=== PATIENT | female | born 1950 | race Caucasian/White ===

== ENCOUNTER → 2016-11-28 | Outpatient (CLI) | payer OTHER, SELFPAY ==
--- NOTE | 2016-11-28 15:24 | MAM ---
History: Well woman exam. Date of exam: 11/28/2016 Services provided: Bilateral full field digital screening mammography. CAD, the images were reviewed with R2 computer aided detection. FINDINGS: Glandular tissue is scattered glandular contour. No prior study is currently available for comparison. No dominant mass, architectural distortion or clustered microcalcification. IMPRESSION: Benign exam Recommendation: Routine annual mammography BIRAD CATEGORY: 2 BENIGN Electronically signed by: Oralia Walker MD 11/28/2016 3:23 PM CDT Workstation: [id number]
== END | disposition home or self-care (01) ==
LOC: MAMMO 13:45
PROVIDERS: ATTEND Family Medicine
DX: Z12.31 Encounter for screening mammogram for malignant neoplasm of breast (principal)

== ENCOUNTER → 2017-04-18 | Outpatient (CLI) | payer OTHER | LOC: YCFC.O 08:01 | PROVIDERS: ATTEND Nurse Practitioner Family | DX: I10 Essential (primary) hypertension (principal); E78.2 Mixed hyperlipidemia; R73.09 Other abnormal glucose ==

== ENCOUNTER 2017-07-21 12:14 | Inpatient (IN) | payer SELFPAY ==
[2017-07-21] MEDS ORDERED: IBUPROFEN 200 MG TAB PO ONE (12:37)
[2017-07-21] MEDS ORDERED: IPRATROPIUM/ALBUTEROL 3 ML VIAL NEB ONE (12:37)
--- NOTE | 2017-07-21 13:01 | RAD ---
EXAM: Frontal and lateral chest X-ray's obtained. CLINICAL INDICATION: cough, fever 2 weeks COMPARISON: Chest x-ray image from 11/11/2012. Report unavailable at the time of dictation. FINDINGS: There is patchy increased density at the right lung base and superior to the minor fissure of the right upper lobe. Additional streaky densities noted in the left lung base. There is blunting of the right costophrenic angle. No sizable left pleural effusion. No pneumothorax. The heart size appears within normal limits and there is no pulmonary vascular congestion. There are calcifications of the aortic arch. Visualized osseous structures appear moderately demineralized. IMPRESSION: Findings concerning for multifocal pneumonia involving the right upper and right lower lobes with additional atelectasis or infiltrate in the left lung base and small right pleural effusion. Electronically signed by: Grey Arteaga MD 07/21/2017 12:[address] [facility] Workstation: [id number]
[2017-07-21] MEDS ORDERED: ALUMINUM & MAGNESIUM HYDROXIDE 30 ML UD PO ONE ×2 (13:12→16:03)
[2017-07-21] MEDS ORDERED: OSELTAMIVIR 75 MG CAP PO ONE (13:27)
[2017-07-21] MEDS ORDERED: POTASSIUM CHLORIDE ELIXIR 20 MEQ/15 ML UD PO ONE (14:35)
[2017-07-21] MEDS ORDERED: ACETYLCYSTEIN 20 % 6,000 MG/30 ML VIAL PO ONE (14:35)
[2017-07-21] MEDS ORDERED: SODIUM CHLORIDE 0.9% 1000ML 1,000 ML IVS ONE (14:35)
[2017-07-21] MEDS ORDERED: AZITHROMYCIN IV 500 MG in SODIUM CHLORIDE 0.9% 250ML 250 ML IVPB ONE (16:10)
[2017-07-21] MEDS ORDERED: cefTRIAXone SODIUM 1 GM in SODIUM CHL 0.9% 50ML MIN-BAG+ 50 ML IVPB ONE (16:10)
--- NOTE | 2017-07-21 16:14 | CT ---
EXAM DESCRIPTION: CTA Chest 07/21/2017 4:09 PM SAFETY DEPOSIT CLERK CLINICAL HISTORY: 66 years, Female, pe protocol, hypoxia COMPARISON: None. TECHNIQUE: Following the timed administration of intravenous contrast, volumetric CT acquisition was performed through the chest. Images in the axial, coronal, and sagittal plane were presented for interpretation. Maximum intensity projections were also presented for interpretation. This exam was performed according to our departmental dose-optimization program, which includes automated exposure control, adjustment of the mA and/or kV according to patient size and/or use of iterative reconstruction technique. FINDINGS: There is no evidence of pulmonary embolism on this diagnostic quality study. There are nodular foci of consolidation throughout the lungs bilaterally which is most pronounced in the right lower lobe. There is confluent consolidation within the right lower lobe best seen on axial image 65 measuring up to 9.2 x 8.7 cm. The heart is normal in size and morphology. The thoracic aorta and its primary branches are normal in course and caliber. The main pulmonary artery is normal in size. The visualized proximal tracheobronchial tree is within normal limits. There is a right hilar lymph node on axial image 56 measuring 8 mm in diameter. There is no additional right hilar lymph node on axial image 44 measuring 1.5 cm. There is a left hilar lymph node on axial image 48 measuring 9 mm in diameter. The soft tissue structures of the chest wall are normal. The visualized osseous structures are age appropriate. There is diffuse fatty infiltration of the liver. The rest of the upper abdominal structures are grossly normal in appearance. IMPRESSION: 1. No evidence of pulmonary embolism. 2. Confluent right lower lobe consolidation with patchy areas of consolidation throughout the lungs bilaterally, likely representing multifocal infectious process though follow-up to radiographic resolution is recommended. The scattered mediastinal and hilar lymph nodes are likely reactive in nature. 3. Fatty liver. Electronically signed by: Tameka Elkins MD 07/21/2017 4:13 PM SAFETY DEPOSIT CLERK
--- NOTE | 2017-07-21 16:29 | ED.PDOC ---
History of Present Illness - General Chief Complaint: General Stated Complaint: Cough, congestion Time Seen by Provider: 07/21/17 12:32 Source: patient Exam Limitations: no limitations - History of Present Illness Initial Comments: the patient's is 66-year-old female presenting to the emergency room secondary to cough and shortness of breath. She's had a significant cough for the last couple of weeks and was actually seen in outpatient clinic yesterday or the day before yesterday and was apparently written for an antibiotic that she did not get picked up. She does have some chronic lung disease as she does have nebulizer treatments at home but she has not really been using these. She does report some fever. She reports to coughing hard enough that it has made her throw up. She is not having any chest pain. She does have shortness of breath and fatigue. She does have a mild increased work of breathing. She is febrile here today. She did test negative for the flu at her previous appointment a couple of days ago. Timing/Duration: unsure Severity: moderate Improving Factors: nothing Worsening Factors: nothing Associated Symptoms: cough, diaphoresis, fever/chills, malaise, shortness of breath, weakness Allergies/Adverse Reactions: Allergies NO KNOWN ALLERGY Allergy (Verified 07/21/17 12:21) Home Medications: Ambulatory Orders Acetaminophen Arthritis [Tylenol Arthritis] 650 mg PO TID PRN 07/21/17 Lisinopril & Hydrochlorothiazi [Lisinopril/Hctz 20-25 mg] 1 tab PO BEDTIME 07/21 Lovastatin 20 mg PO DAILY 07/21/17 amLODIPine BESYLATE [Norvasc] 10 mg PO DAILY 07/21/17 Review of Systems - Review of Systems Constitutional: States: chills, fever, malaise EENTM: States: nose congestion Respiratory: States: cough, short of breath Cardiology: States: no symptoms reported Gastrointestinal/Abdominal: States: vomiting - after coughing Genitourinary: States: no symptoms reported Musculoskeletal: States: no symptoms reported Skin: States: no symptoms reported Neurological: States: no symptoms reported Endocrine: States: no symptoms reported All other Systems: No Change from Baseline Past Medical History (General) - Patient Medical History Hx Seizures: No Hx Stroke: No Hx Dementia: No Hx Asthma: No Hx of COPD: No Hx Cardiac Disorders: Yes - high cholesterol Hx Congestive Heart Failure: No Hx Pacemaker: No Hx Hypertension: Yes Hx Thyroid Disease: No Hx Diabetes: No Hx Gastroesophageal Reflux: No Hx Renal Disease: No Hx Cancer: No Hx of HIV: No Hx Hepatitis C: No Hx MRSA: No Surgical History: tonsillectomy, Hysterectomy, other - Vaccination History Hx Tetanus, Diphtheria Vaccination: Yes - unsure when Hx Influenza Vaccination: No Hx Pneumococcal Vaccination: No - Social History Hx Tobacco Use: No Hx Alcohol Use: No Hx Substance Use: No Hx Substance Use Treatment: No Hx Depression: No Family Medical History - Family History Father Living Status: Hx Cardiac Disease: Yes Mother Family History: Unknown Living Status: Hx Family Diabetes: Yes Physical Exam - Physical Exam General Appearance: Alert, Ill Appearing Eye Exam: bilateral normal Ears, Nose, Throat: hearing grossly normal, nasal congestion, pharyngeal erythema Neck: full range of motion, supple Respiratory: other - the patient has scattered rales diffusely. She has occasional scattered wheezes. She has a mild increased work of breathing. She has mild increased accessory muscle use. 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 She appears to have a longer standing bacterial pneumonia with scattered infiltrates. She is being placed on Rocephin and azithromycin for this. Additionally she appears to have developed influenza on top of this within the last couple of days likely. The patient has received a dose of Tamiflu. She is hypoxic and does correct just adequately at this time with supplemental oxygen. The breathing treatment did not seem to help much. She did receive an ABG to confirm correlation with pulse oximetry. CT angiogram of the chest was performed primarily to rule out a pulmonary embolus as the patient failed to correct much more on her pulse oximetry with higher oxygen flow rates. No evidence of pulmonary and was found. Blood cultures have been performed. A sputum culture is pending. The patient first has received a dose of IV fluids and a dose of Mucomyst for renal prophylaxis due to CT angiogram. Admit for further care. Supplemental oxygen is required. no steroids have been given at this time. - Results/Orders Results/Orders: 07/21/17 13:50 BLOOD CULTURE Stat Laboratory Results - last 24 hr 07/21/17 07/21/17 07/21/17 13:21 13:50 13:50 WBC 14.5 H RBC 4.54 Hgb 12.6 Hct 37.1 MCV 81.7 MCH 27.7 MCHC 33.9 RDW 13.5 Plt Count 172 MPV 8.4 Absolute Neuts (auto) 12.90 H Absolute Lymphs (auto) 0.80 L Absolute Monos (auto) 0.80 Absolute Eos (auto) 0.00 Absolute Basos (auto) 0.00 Neutrophils % 88.8 H Lymphocytes % 5.2 L Monocytes % 5.7 Eosinophils % 0.0 L Basophils % 0.3 PT INR PTT (SP) D-Dimer, Quantitative pCO2 41 pO2 52 L HCO3 29.7 ABG pH 7.470 H ABG O2 Saturation 92.2 L ABG Base Excess 6.0 ABG Deoxyhemoglobin 7.6 H Oxyhemoglobin % 89.8 L Carboxyhemoglobin % 1.0 Methemoglobin % Sat 1.6 H Calc Total Hemoglobin 12.4 Sodium 132 L Potassium 2.9 L Chloride 88 L Carbon Dioxide 29 Anion Gap 17.9 BUN 43 H Creatinine 1.21 BUN/Creatinine Ratio 35.5 H Random Glucose 215 H Serum Osmolality 281.8 Calcium 9.7 Total Bilirubin 1.0 AST 26 ALT 24 Alkaline Phosphatase 47 Creatine Kinase 233 H* CK-MB (CK-2) 2.8 CK-MB (CK-2) % Not Reportable Troponin I < 0.02 B-Natriuretic Peptide 12.8 Serum Total Protein 8.3 H Albumin 3.7 Globulin 4.6 H Albumin/Globulin Ratio 0.8 L 07/21/17 13:50 WBC RBC Hgb Hct MCV MCH MCHC RDW Plt Count MPV Absolute Neuts (auto) Absolute Lymphs (auto) Absolute Monos (auto) Absolute Eos (auto) Absolute Basos (auto) Neutrophils % Lymphocytes % Monocytes % Eosinophils % Basophils % PT 14.0 H INR 1.240 PTT (SP) 26.4 D-Dimer, Quantitative 940 H* pCO2 pO2 HCO3 ABG pH ABG O2 Saturation ABG Base Excess ABG Deoxyhemoglobin Oxyhemoglobin % Carboxyhemoglobin % Methemoglobin % Sat Calc Total Hemoglobin Sodium Potassium Chloride Carbon Dioxide Anion Gap BUN Creatinine BUN/Creatinine Ratio Random Glucose Serum Osmolality Calcium Total Bilirubin AST ALT Alkaline Phosphatase Creatine Kinase CK-MB (CK-2) CK-MB (CK-2) % Troponin I B-Natriuretic Peptide Serum Total Protein Albumin Globulin Albumin/Globulin Ratio the patient has tested positive for the flu as well hest x-ray shows patchy infiltrates with a significant right lower lobe infiltrate. CT angiogram of the chest shows no evidence of pulmonary embolus but does confirm scattered pulmonary infiltrates and a larger right lower lobe infiltrate. Departure - Departure Clinical Impression: Influenza Pneumonia Qualifiers: Pneumonia type: due to unspecified organism Laterality: bilateral Lung location : unspecified part of lung Qualified Code(s): J18.9 - Pneumonia, unspecified organism Disposition: Admit Patient Home Medications: Ambulatory Orders Acetaminophen Arthritis [Tylenol Arthritis] 650 mg PO TID PRN 07/21/17 Lisinopril & Hydrochlorothiazi [Lisinopril/Hctz 20-25 mg] 1 tab PO BEDTIME 07/21 Lovastatin 20 mg PO DAILY 07/21/17 amLODIPine BESYLATE [Norvasc] 10 mg PO DAILY 07/21/17 Decision To Admit - Decistion To Admit Decision to Admit Reason: Medical Nature Decision to Admit Date: 07/21/17 Decision to Admit Time: 16:35
[2017-07-21] MEDS ORDERED: SODIUM CHL 0.9% 50ML MIN-BAG+ 50 ML IVPB ONE (17:13)
[2017-07-21] MEDS ORDERED: cefTRIAXone SODIUM 1 GM VIAL ONE (17:13)
[2017-07-21] MEDS ORDERED: SODIUM CHLORIDE 0.9% 250ML 250 ML ONE (17:53)
[2017-07-21] MEDS ORDERED: AZITHROMYCIN IV 500 MG VIAL IVPB ONE (17:53)
--- NOTE | 2017-07-21 18:01 | HP ---
SUPERVISING PHYSICIAN: aCleb Vidal M.D. CHIEF COMPLAINT: Cough and congestion. HISTORY OF PRESENT ILLNESS: Ms. Sequeira is a 66 year-old female patient that presented to the Emergency Room today due to a worsening cough and shortness of breath. She notes that she has had the cough well over a week and was actually seen in the clinic yesterday by Latonia Zamora and was written a prescription, however, she did not get the medication filled and is unsure as to what the actual medication was. She does have a significant history of some chronic lung disease which she uses nebulizer treatment at home but notes that she has not really been using them. She notes that she has had a fever at home and that her cough is bad enough that it has actually made her throw up once. She denied any chest pains but noted that she does have increasing shortness of breath and fatigue, and some dyspnea with exertional effort. She did have a flu swab several days previously that was negative, however today her laboratory testing showed on the Influenza test that she was positive for Influenza A. She also showed to have a significant leukocytosis of 14,500 with a left shift. Blood gas analysis showed that she had significant hypoxemia with an initial pH of 7.47 and PCO2 of 41, PO2 of 52 and bicarb 29 with saturations on 2 liters nasal cannula at 92% with a base excess of 6. Chemistries were significant for hyponatremia with sodium 132 and hypokalemia 2.9. BUN was elevated, creatinine was within normal limits at 1.21. Initial lactic acid was elevated at 2.5. All liver functions showed to be within normal limits. CPK was elevated at 233 with troponin less than 0.02. Urinalysis showed on the dipstick 100 the protein with trace leukocyte esterase. Microscopic revealed a significant pyuria with WBCs of 10 to 20 with bacteria 1+. Blood cultures were completed. She was started on Tamiflu in the Emergency Department as well as initiated on antibiotic therapy with Rocephin and azithromycin. Her radiographic studies did indicate that she had a significant multifocal pneumonia involving the right upper and lower lobes with some infiltrates noted in the left lung base. Coagulation studies showed that she had an elevated D-dimer and given that she had significant hypoxemia despite oxygen therapy, a CTA of the chest was completed to further rule out a possible pulmonary embolism and per radiology interpretation there was no evidence of pulmonary embolism and of mention was confluent right lower lobe consolidation with patchy areas of consolidation throughout the lungs bilaterally likely representing multifocal infectious process. Given her symptomology, positive Influenza for A, multifocal pneumonia, leukocytosis, elevated lactic acid all concerning for community acquired pneumonia with developing sepsis, the patient is now going to be initiated with sepsis protocol. She was admitted in stable condition. PAST MEDICAL HISTORY: 1. Hypertension. 2. Hypercholesterolemia. PAST SURGICAL HISTORY: 1. sections times 2. 2. Total hysterectomy. 3. Kidney stone removal. 4. Tonsillectomy and adenoidectomy. HOME MEDICATIONS: 1. Lisinopril/Hydrochlorothiazide 20-25 one tablet at bedtime. 2. Tylenol Arthritis 650 mg t.i.d. as needed. 3. Amlodipine 10 mg daily. 4. Lovastatin 20 mg daily. ALLERGIES: NO KNOWN DRUG ALLERGIES. FAMILY HISTORY: Significant for diabetes mellitus and hypertension. 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 She is . Lives in [place]. She has never smoked, does not drink or use illicit drugs. REVIEW OF SYSTEMS: CONSTITUTIONAL: Positive for chills, fever and general malaise. HEENT: Notable for nasal congestion, nasal drainage. No sore throat. RESPIRATORY: Significant for worsening cough and shortness of breath. CARDIOVASCULAR: Denies any chest pains, syncopal episodes or palpitations. GASTROINTESTINAL: Noted some emesis with coughing but no nausea or vomiting or diarrhea or other bowel habit changes. GENITOURINARY: Notes that she has had some polyuria but denies any dysuria or other urinary symptoms. NEUROLOGIC: No vision changes or other neurological changes, headaches, vision changes. PHYSICAL EXAMINATION: VITAL SIGNS: Initial temperature was 100.5, pulse initially was 128 with blood pressure 116/58, respirations 24, satting low 90s on room air at rest, but showing significant hypoxemia on ABGs. Admission weight was 74.1 kg. GENERAL: The patient appears to be somewhat dehydrated, well nourished with apparent acute distress on admission to the Medical/Surgical floor but is ill appearing. HEENT: Tympanic membranes are clear bilaterally. Oropharynx was pink with mildly dry mucosal membranes. There were no lesions. NECK: Supple, non-tender with full range of motion. CHEST: Notable for rales diffused noted bilaterally with no significant wheezing. CARDIOVASCULAR: Regular rate and rhythm without appreciable murmurs, gallops, or rubs, ABDOMEN: Obese but soft, non-tender with positive bowel sounds. EXTREMITIES: No clubbing, cyanosis or edema. NEUROLOGIC: Cranial nerves II-XII are grossly intact. Facial features are symmetrical. Extraocular movements are within normal limits. There is no notable nystagmus. She was alert and oriented times three. LABORATORY: Showed a leukocytosis of 14,500 with hemoglobin 12.6, hematocrit 37.1, platelet count 172,000. Differential showed a left shift. Coagulation studies showed elevated PT of 14.0 with a normal PTT of 26.4. D-dimer was elevated 940. Blood gas analysis showed pH of 7.47, PO2 of 52, PCO2 of 41, bicarb 29.7, base excess 6.0, satting 92% on nasal cannula at rest. Chemistries showed a low sodium at 132, potassium was low at 2.9, carbon dioxide was normal at 29 with BUN 43, creatinine 1.21. Initial lactic acid was 2.5. Blood sugar showed elevation at 215. Liver functions showed all to be within normal limits with creatinine showing to be elevated at 233 with BNP of 12.8, troponin less than 0.02. Again, lactic acid initially was 2.5. Urinalysis showed 100 protein, trace leukocyte esterase. Microscopic showed 1 RBC, 10 to 20 WBCs, 1 to 3 epithelials, 1 + amorphous sediment, 1+ bacteria with some trace mucous. MICROBIOLOGY: Urine culture is pending. Sputum culture is pending. Blood culture is pending. Influenza by PCR showed positive for Influenza A, negative for B. RADIOLOGY: Initially chest x-ray in the Emergency Department per radiology interpretation showed findings concerning for multifocal pneumonia involving the right upper and lower lobes with additional atelectasis/infiltrate in the left lung base and small right pleural effusion. This was followed-up with CTA of the chest to rule out pulmonary embolism given the elevated D-dimer and per radiology interpretation there was no evidence of pulmonary embolism. Again, confluent right lower lobe consolidation with patchy areas of consolidation throughout the lung bilaterally likely representing multifocal infectious process was noted. Please see that report for full details. EKG was pending. ASSESSMENT: 1. Multifocal pneumonia community acquired with a positive Influenza A infection concerning for developing early sepsis. 2. Sepsis with systemic inflammatory response with an elevated lactic acid, significant hypoxemia on blood gas, leukocytosis secondary to underlying pneumonia and Influenza A. 3. Hyperglycemia with no history of diabetes mellitus with a hemoglobin A1c pending. 4. Hypertension, controlled. 5. Urinary tract infection with initiation of antibiotic therapy with Rocephin with cultures pending. 6. Electrolyte imbalance with hyponatremia and hypokalemia requiring initiation of IV fluids for replacement. 7. Partially compensated metabolic acidosis likely secondary to developing sepsis with an elevated lactic acid with a normal CO2, bicarb and base excess on admission with initial anion gap showing to be normal at 29. PLAN: The patient is going to be admitted to the Medical/Surgical floor for initiation of sepsis protocol with bilateral multifocal pneumonia. Blood cultures were collected as well as lactic acid prior to initiation of antibiotic therapy with Rocephin and azithromycin. She was given a liter of fluid in the E. R. that will be continued on the floor with additional fluids and maintenance fluids to include normal saline with 20 of potassium at 250 an hour for a liter to be continued after that at 125 an hour. She will be started on Tamiflu and DVT prophylaxis as per protocol. She will have aggressive pulmonary hygiene with chest percussive therapy awaiting a sputum culture to further target antibiotic therapy, again with antibiotic therapy to include Rocephin and azithromycin. She will be given Promethazine with codeine for cough and treated with Tylenol for fevers as needed. Will resume her home medications once they have been updated and verified in the medical records. Will closely monitor her blood sugars with a repeat BMP and lactic acid in 6 hours post admission. Will await a hemoglobin A1c to further address the hyperglycemia with initiation of possible need for sliding insulin protocol. Will anticipate length of stay to be at least 2 to 3 days. Until then, continue to monitor and treat appropriately until discharge. #[id number] [facility]
[2017-07-21] MEDS ORDERED: ONDANSETRON INJ 4 MG/2 ML VIAL IV PRN (18:49)
[2017-07-21] MEDS ORDERED: ACETAMINOPHEN 325 MG TAB PO PRN (18:49)
[2017-07-21] MEDS ORDERED: ALBUTEROL SULFATE 2.5 MG/3 ML VIAL NEB PRN (18:49)
[2017-07-21] MEDS ORDERED: KCL 20 MEQ/NS 1,000 ML IVS PRN (18:56)
--- NOTE | 2017-07-21 19:02 | PCM.CORE ---
Physician DVT/VTE - Nurse DVT Assessment & Total Each Risk Factor Represents 3 Points: Medical PT with Hx of SD, CHF, Severe infection/sepsis Each Risk Factor Represents 2 Points: Age 60-74 Each Risk Factor is 1 Point: Obesity (BMI >25), Serious Lung disease (pnemonia < 1month, COPD, emphysema,etc) DVT Assessment Score: 7 - 5 or more Very High Risk Treatments: Early Ambulation *, Sequential Compression Device Pharmacological: Enoxaparin 40mg SQ Daily
[2017-07-21] MEDS ORDERED: ENOXAPARIN SODIUM 40 MG/0.4 ML SYG SUBCU SCH (19:30)
[2017-07-21] MEDS ORDERED: LISINOPRIL 10 MG TAB ONE (19:40)
[2017-07-21] MEDS ORDERED: hydroCHLOROthiazide 25 MG TAB ONE (19:40)
[2017-07-21] MEDS: IV SET AND CAP CHANGE INJ INJ SCH (19:47)
[2017-07-21] MEDS: IPRATROPIUM/ALBUTEROL 3 ML VIAL INH SCH (20:06)
[2017-07-21] MEDS: guaiFENesin ER TAB 600 MG TAB PO SCH (20:38)
[2017-07-21] MEDS: OSELTAMIVIR 75 MG CAP PO SCH (20:41)
[2017-07-21] MEDS ORDERED: NON-FORMULARY MEDICATION 1 EA MIS (Lisinopril & Hydrochlorothiazi [Lisinopril/Hctz 20-25 M PO SCH (21:00)
[2017-07-21] MEDS ORDERED: DEXTROSE 50% 25 GM/50 ML SYG IV PRN (21:36)
[2017-07-21] MEDS ORDERED: GLUCAGON INJ 1 MG VIAL SUBCU PRN (21:36)
[2017-07-22] MEDS: KCL 20MEQ/0.45% NS 1,000 ML IVS PRN ×2 (00:30→19:55)
[2017-07-22] MEDS: PROMETHAZINE W/CODEINE SYR 5 ML UD PO PRN ×4 (00:31→19:56)
[2017-07-22] MEDS: SODIUM CHLORIDE 0.9% (FLUSH) 10 ML SYG IV PRN ×4 (00:32→06:21)
[2017-07-22] MEDS ORDERED: SODIUM CHL 0.9% 50ML VIAL 9 ML, ALBUTEROL SULFATE NEBS 7.5 MG, IPRATROPIUM BROMIDE NEBS... NEB ONE ×3 (01:00)
[2017-07-22] MEDS ORDERED: ALPRAZolam 0.25 MG TAB PO ONE (01:03)
[2017-07-22] MEDS ORDERED: MAGNESIUM SULFATE PREMIX 2GM 2 GM in PREMIX BAG 1 BAG IVPB ONE (01:03)
[2017-07-22] MEDS ORDERED: MAGNESIUM SULFATE PREMIX 2GM 50 ML IVPB ONE (01:04)
[2017-07-22] MEDS ORDERED: methylPREDNISolone SODIUM SUC 125 MG/2 ML VIAL IV ONE ×2 (01:04→08:18)
[2017-07-22] MEDS ORDERED: ALPRAZolam 0.5 MG TAB ONE (01:05)
[2017-07-22] MEDS ORDERED: BUDESONIDE NEBS 0.5 MG/2 ML VIAL NEB ONE (02:01)
[2017-07-22] MEDS ORDERED: IPRATROPIUM BROMIDE NEBS 0.5 MG/2.5 ML VIAL NEB ONE (02:01)
--- NOTE | 2017-07-22 02:41 | RAD ---
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 Patchy opacities are similar or slightly progressed since the prior exam. No large pleural effusion. The cardiomediastinal silhouette is within normal limits. Impression: Multifocal pneumonia is similar or slightly progressed since the prior exam. Electronically signed by: Caleb Park MD 07/22/2017 2:40 AM WIRE FENCE BUILDER
[2017-07-22] MEDS ORDERED: cefTRIAXone SODIUM 1 GM VIAL ONE ×3 (04:09→19:46)
[2017-07-22] MEDS ORDERED: SODIUM CHL 0.9% 50ML MIN-BAG+ 50 ML IVPB ONE ×3 (04:09→19:46)
[2017-07-22] MEDS: cefTRIAXone SODIUM 1 GM in SODIUM CHL 0.9% 50ML MIN-BAG+ 50 ML IVPB SCH ×2 (04:32→17:00)
[2017-07-22] MEDS: PANTOPRAZOLE SODIUM IV 40 MG VIAL IV SCH (06:21)
--- NOTE | 2017-07-22 07:39 | RAD ---
EXAM: Two view chest. INDICATION: 07/22/2017. COMPARISON: Chest x-ray: None. FINDINGS: There are airspace opacities along the right upper lobe and bilateral lung bases. The heart size is stable. There is no pneumothorax or pleural effusion. The bones are unchanged. IMPRESSION: Multifocal pneumonia Electronically signed by: Mauri Saleem MD 07/22/2017 7:38 AM HEAT TREATER HEAD Workstation: [id number]
[2017-07-22] MEDS: INSULIN LISPRO 100 UNITS/ML PEN SUBCU SCH ×4 (07:42→20:58)
[2017-07-22] MEDS: IPRATROPIUM/ALBUTEROL 3 ML VIAL INH SCH (08:15)
[2017-07-22] MEDS ORDERED: SODIUM CHLORIDE 0.9% 250ML 250 ML ONE (09:27)
[2017-07-22] MEDS ORDERED: AZITHROMYCIN IV 500 MG VIAL IVPB ONE (09:28)
[2017-07-22] MEDS: SIMVASTATIN 10 MG TAB PO SCH ×2 (09:31→20:53)
[2017-07-22] MEDS: guaiFENesin ER TAB 600 MG TAB PO SCH ×2 (09:49→20:52)
[2017-07-22] MEDS: amLODIPine BESYLATE 5 MG TAB PO SCH (09:49)
[2017-07-22] MEDS: OSELTAMIVIR 75 MG CAP PO SCH ×2 (09:49→20:53)
[2017-07-22] MEDS: AZITHROMYCIN IV 500 MG in SODIUM CHLORIDE 0.9% 250ML 250 ML IVPB SCH (09:50)
[2017-07-22] MEDS: IPRATROPIUM/ALBUTEROL 3 ML VIAL NEB SCH ×3 (13:36→20:06)
[2017-07-22] MEDS: methylPREDNISolone SODIUM SUC 125 MG/2 ML VIAL IV SCH ×2 (13:43→19:56)
[2017-07-22] MEDS: hydroCHLOROthiazide 25 MG TAB PO SCH (20:52)
[2017-07-22] MEDS: ENOXAPARIN SODIUM 40 MG/0.4 ML SYG SUBCU SCH (20:52)
[2017-07-22] MEDS: LISINOPRIL 10 MG TAB PO SCH (20:53)
[2017-07-23] MEDS: methylPREDNISolone SODIUM SUC 125 MG/2 ML VIAL IV SCH ×2 (01:34→07:44)
[2017-07-23] MEDS: cefTRIAXone SODIUM 1 GM in SODIUM CHL 0.9% 50ML MIN-BAG+ 50 ML IVPB SCH (03:55)
[2017-07-23] MEDS: PANTOPRAZOLE SODIUM IV 40 MG VIAL IV SCH (06:10)
--- NOTE | 2017-07-23 07:10 | RAD ---
EXAM: Two view chest. INDICATION: Pneumonia. COMPARISON: Chest x-ray: 07/22/2017. FINDINGS: Cardiac silhouette: Unremarkable. Tamara: Unremarkable. Lobar consolidation: There are patchy airspace opacities within the right upper, right lower, and left lower lobes. Pleural effusion: None. Pneumothorax: None. Other: None. Bones: Unremarkable. Other: None. IMPRESSION: Multifocal pneumonia Electronically signed by: Mauri Saleem MD 07/23/2017 7:09 AM SCRIPT MANAGER Workstation: [id number]
[2017-07-23] MEDS ORDERED: SODIUM CHLORIDE 0.9% 250ML 250 ML ONE (07:28)
[2017-07-23] MEDS ORDERED: SODIUM CHL 0.9% 50ML MIN-BAG+ 0 ML IVPB ONE (07:28)
[2017-07-23] MEDS ORDERED: cefTRIAXone SODIUM 1 GM VIAL ONE (07:29)
[2017-07-23] MEDS ORDERED: AZITHROMYCIN IV 500 MG VIAL IVPB ONE (07:29)
[2017-07-23] MEDS: INSULIN LISPRO 100 UNITS/ML PEN SUBCU SCH ×7 (07:38→20:47)
--- NOTE | 2017-07-23 08:20 | PN ---
SUPERVISING PHYSICIAN: Caleb Vidal MD DATE: 07/22/17 SUBJECTIVE: Early this morning the patient had a significant desaturation requiring a little more aggressive care with initiation of some Solu-Medrol, continuous Duoneb treatments and magnesium sulfate by IV. She has been maintained on 02 saturations high flow nasal cannula at rest and showing slow progression. She does remain afebrile. OBJECTIVE: VITAL SIGNS: Temperature 98.7, pulse 101, blood pressure 111/65, respirations 20, saturation 91% to 92% on nasal cannula at high flow at 12 liters. I&O: positive balance of 171 with 1121 in and 950 out. She has had one bowel movement. Weight 74.1 kg. CHEST: Lung sounds are slightly improved, better aeration, diminished towards the bases with notably rhonchi on the right with no obvious wheezing. HEART: Regular rate and rhythm. ABDOMEN: Soft, non-tender, positive bowel sound. EXTREMITIES: No cyanosis, clubbing, or edema. NEUROLOGIC: Alert and oriented x 3. LABORATORY: White count has shown some slight improvement down to 12,700, hemoglobin stable at 12.1, hematocrit 35.7, platelet count 164,000, differential does continue to show a left shift. Repeat blood gas now since last night shows a normal pH of 7.43, PC902 of 41, P02 again was down to 51 with bicarb 27, saturation 90% on 12 liter nasal cannula at high flow. Chemistries showed a low potassium at 3.4, sodium normal at 137, BUN 32, creatinine 0.79. Blood sugars are showing elevation since she has been on Solu- Medrol with calcium being at 9.2, magnesium 1.9. She did have a repeat lactic acid after 6 hours initiation of fluids and antibiotics and had normalized to 1.4. Laboratory and repeat chest x-ray both last night and early this morning showed multifocal pneumonia, essentially unchanged from admission. ASSESSMENT: 1. Multifocal pneumonia community acquired with a positive Influenza A infection concerning for early sepsis initially on admission, showing good improvement in regards to lactic acid with IV fluids, although showing very slow clinical response requiring high flow 2 to maintain minimal saturation of 92% with patient showing no signs of respiratory distress currently. 2. Sepsis on admission with systemic inflammatory response with an elevated lactic acid, significant hypoxemia on blood gases that continues with leukocytosis although showing improvement all secondary to underlying pneumonia and Influenza A.infection. 3. Hyperglycemia with normal hemoglobin A1c with the patient showing no history of diabetes mellitus although showing hyperglycemia both before and after initiation of Solu-Medrol felt to be secondary to the corticosteroids as well as a stress response requiring initiation of sliding scale insulin.. 4. Hypertension, controlled. 5. Questionable urinary tract infection with antibiotic therapy including Rocephin with cultures pending. 6. Electrolyte imbalance with hyponatremia showing is probably related to, now with a mild hypokalemia again requiring IV replacement. 7. Partially compensated metabolic acidosis on admission now showing to be with a normal pH and continued hypoxemia but normal C02 with initial lactic acid showing elevation but returning to baseline with initiation of antibiotics and fluids and remain within normal limits in regard to the anion gap. PLAN: The patient will continue with aggressive pulmonary hygiene as tolerated. She was given some fluids. This will be slowed down as she is taking adequate p.o. fluid. She remains on antibiotic therapy with Rocephin and azithromycin. Should she continue to show very slow clinical response, consideration of escalating the antibiotic therapy. Will continue with high flow oxygen via nasal cannula. I did discuss at length with the patient that should she show desaturation, certainly we will need to a Venti mask and possibly C-PAP versus eventually having to be intubated. The patient understands this and I have offered her Xanax in efforts to help control any anxiety or apprehensions she has towards wearing a mask. She continues on Tamiflu. Her sliding scale has been initiated She will probably need additional coverage a.c. and possibly some long acting while she remains on high dose steroids. She is using Phenergan and codeine for cough as she does have desaturation during coughing episodes. Will continue to monitor the patient closely and adjust treatment accordingly to patient's [id number] response until discharge. Monitor and treat appropriately. #[id number] [facility]
[2017-07-23] MEDS: amLODIPine BESYLATE 5 MG TAB PO SCH (08:57)
[2017-07-23] MEDS: OSELTAMIVIR 75 MG CAP PO SCH ×2 (08:57→20:41)
[2017-07-23] MEDS: guaiFENesin ER TAB 600 MG TAB PO SCH ×2 (08:58→20:42)
[2017-07-23] MEDS: AZITHROMYCIN IV 500 MG in SODIUM CHLORIDE 0.9% 250ML 250 ML IVPB SCH (09:00)
[2017-07-23] MEDS: IPRATROPIUM/ALBUTEROL 3 ML VIAL NEB SCH ×4 (09:20→21:10)
[2017-07-23] MEDS ORDERED: CHLORPHENIRAMINE W/HYDROCODONE 5 ML UD PO PRN (09:51)
[2017-07-23] MEDS ORDERED: levoFLOXacin 500MG IV 100 ML IVPB ONE (09:59)
[2017-07-23] MEDS ORDERED: CEFEPIME 2 GM VIAL IVPB ONE ×2 (09:59→19:27)
[2017-07-23] MEDS ORDERED: SODIUM CHL 0.9% 50ML MIN-BAG+ 50 ML IVPB ONE ×2 (10:00→19:27)
[2017-07-23] MEDS ORDERED: CEFEPIME 2 GM in SODIUM CHL 0.9% 50ML MIN-BAG+ 50 ML IVPB SCH (10:00)
[2017-07-23] MEDS ORDERED: POTASSIUM CHLORIDE INJ 20 MEQ 20 MEQ in SODIUM CHLORIDE 0.45% 1000ML 1,000 ML IVS PRN (10:35)
[2017-07-23] MEDS: CEFEPIME 2 GM in SODIUM CHL 0.9% 50ML MIN-BAG+ 50 ML IVPB SCH ×2 (11:00→23:05)
[2017-07-23] MEDS ORDERED: levoFLOXacin 500MG IV 500 MG in PREMIX BAG 1 BAG IVPB SCH (11:00)
[2017-07-23] MEDS: levoFLOXacin 500MG IV 500 MG in PREMIX BAG 1 BAG IVPB SCH (11:56)
[2017-07-23] MEDS: methylPREDNISolone SODIUM SUC 40 MG/ML VIAL IV SCH ×3 (12:02→23:05)
--- NOTE | 2017-07-23 14:56 | PN ---
SUPERVISING PHYSICIAN: Maximilian Vernon MD DATE: 07/23/17 SUBJECTIVE: Ms. Sequeira is in no active distress currently. She states she feels no better or worse than she did yesterday. She is requiring quite a bit of oxygen at this time and is on high flow nasal cannula. She was started on Solu-Medrol and her blood sugars are going up a little bit due to this. Her chest x-ray was reviewed and does not look a whole lot different than it did yesterday. OBJECTIVE: VITAL SIGNS: Blood pressure 130/70. Heart rate 71. Respiratory rate 22. Temperature 97.9. Oxygen saturation 93% on high flow oxygen therapy. GENERAL: Ms. Sequeira is a 66-year-old female who still looks acutely ill at this time. HEENT: Head normocephalic, atraumatic. Pupils are equal and reactive. No nasal drainage. Throat with moist mucosa. NECK: Supple. Midline trachea. No jugular venous distention. LUNGS: Symmetrical with equal rise and fall of the chest inspiration and expiration. Lung sounds are coarse bilaterally with no active wheezing. CARDIOVASCULAR: Regular rate and rhythm. Normal S1, S2. ABDOMEN: Soft, obese. Positive bowel sounds. Nontender to palpation. GENITOURINARY: Deferred. EXTREMITIES: Lower extremities with no significant edema . Positive peripheral pulses. NEUROLOGIC: The patient is alert and oriented. LABORATORY: Labs and films have been reviewed. She has a mild increase in her white blood cell count at 14,000, which is an increase from yesterday at 12.7. Hemoglobin 11.4 which is a mild drop from the 12.1 that it was yesterday. She has a left shift of 91.6. Chemistries show sodium 137, potassium 3.5, chloride 100, CO2 26, BUN 26, creatinine 0.54, glucose 298, calcium 9.0. RADIOLOGY: Chest x-ray reviewed showed no significant change from yesterday. ASSESSMENT: 1. Acute hypoxia and respiratory failure on high flow oxygen therapy. 2. Multifocal pneumonia with influenza type A. 3. Sepsis secondary to multifocal pneumonia with current negative cultures. 4. Diabetes mellitus, type 2, as evidenced by hemoglobin A1c of 6.5. She is not currently on anything as an outpatient. 5. Hypertension, controlled. 6. Hypokalemia, mildly improved. PLAN: At this time, the patient is still quite ill with her multilobar pneumonia and influenza. I am going to continue her steroids, but at a reduced dose. She was on 60 mg q.6h. and I am dropping this to 20 mg q.6h. due to lack of wheezing. However, given her increase in white blood cell count and continued left shift in addition to the fact that her chest x-ray does not really look a whole lot better, I am going to escalate her antibiotics to cefepime and Levaquin. As stated before, the cultures are still negative, however, she was not really able to give us a sputum culture until this morning. We will monitor the results of this. Given her hyperglycemia, I feel like some of this is due to the corticosteroids. I am not going to get real aggressive with adjusting the dose of her insulin due to the fact that I am reducing her steroids. I will monitor this, however. She does meet criteria for diabetes mellitus with a hemoglobin A1c of 6.5, so as an outpatient, she probably needs to be followed up on and possibly start on metformin at that time. I will recheck arterial blood gases today to see if she has made any progress. We will also recheck labs and chest x-ray tomorrow morning. #[id number] [facility]
[2017-07-23] MEDS ORDERED: PANTOPRAZOLE SODIUM TAB 40 MG PO ONE (19:27)
[2017-07-23] MEDS: ENOXAPARIN SODIUM 40 MG/0.4 ML SYG SUBCU SCH (20:41)
[2017-07-23] MEDS: hydroCHLOROthiazide 25 MG TAB PO SCH (20:41)
[2017-07-23] MEDS: SIMVASTATIN 10 MG TAB PO SCH (20:41)
[2017-07-23] MEDS: LISINOPRIL 10 MG TAB PO SCH (20:41)
[2017-07-23] MEDS: SODIUM CHLORIDE 0.9% (FLUSH) 10 ML SYG IV SCH (20:42)
[2017-07-24] MEDS: methylPREDNISolone SODIUM SUC 40 MG/ML VIAL IV SCH ×2 (05:01→18:10)
[2017-07-24] MEDS: PANTOPRAZOLE SODIUM TAB 40 MG PO SCH (06:09)
--- NOTE | 2017-07-24 07:04 | RAD ---
EXAM DESCRIPTION: Chest,1 View CLINICAL HISTORY: pneumonia FINDINGS/ IMPRESSION: Better aeration with decreased density and size of the small area of infiltrate right upper lobe abutting the minor fissure laterally. Persistent volume loss right lower lobe with mild increased density. Left lung is clear. No pulmonary edema or effusion Electronically signed by: Maximilian Maldonado MD 07/24/2017 7:03 AM [facility]
[2017-07-24] MEDS: INSULIN LISPRO 100 UNITS/ML PEN SUBCU SCH ×7 (07:44→20:51)
[2017-07-24] MEDS ORDERED: INSULIN DETEMIR 100 UNITS/ML PEN SUBCU ONE (08:16)
[2017-07-24] MEDS: IPRATROPIUM/ALBUTEROL 3 ML VIAL NEB SCH ×4 (08:28→20:43)
[2017-07-24] MEDS: OSELTAMIVIR 75 MG CAP PO SCH ×2 (09:37→20:44)
[2017-07-24] MEDS: guaiFENesin ER TAB 600 MG TAB PO SCH ×2 (09:37→20:44)
[2017-07-24] MEDS: amLODIPine BESYLATE 5 MG TAB PO SCH (09:37)
[2017-07-24] MEDS: SODIUM CHLORIDE 0.9% (FLUSH) 10 ML SYG IV SCH ×2 (09:38→20:45)
[2017-07-24] MEDS ORDERED: SODIUM CHL 0.9% 50ML MIN-BAG+ 50 ML IVPB ONE ×2 (10:24→20:15)
[2017-07-24] MEDS ORDERED: CEFEPIME 2 GM VIAL IVPB ONE ×2 (10:25→20:16)
[2017-07-24] MEDS: KCL 20 MEQ/NS 1,000 ML IVS PRN (10:29)
[2017-07-24] MEDS: CEFEPIME 2 GM in SODIUM CHL 0.9% 50ML MIN-BAG+ 50 ML IVPB SCH ×2 (10:31→22:58)
[2017-07-24] MEDS ORDERED: levoFLOXacin 500MG IV 100 ML IVPB ONE (12:00)
[2017-07-24] MEDS: levoFLOXacin 500MG IV 500 MG in PREMIX BAG 1 BAG IVPB SCH (12:01)
--- NOTE | 2017-07-24 13:35 | PN ---
SUPERVISING PHYSICIAN: Maximilian Vernon MD DATE: 07/24/17 SUBJECTIVE: The patient has actually gotten quite a bit better over the last 24 hours. She states her breathing is better. She does not feel as run down as she did. She has been moving around a lot more as well. The respiratory therapist states she is actually better as well. Her oxygen requirements have gone down. We did an arterial blood gases yesterday and her PO2 was a lot better than the previous one and in fact her O2 saturation was 99%. Therefore, the oxygen was turned down at that time. OBJECTIVE: VITAL SIGNS: Blood pressure 130/70. Heart rate 101. Respiratory rate 22. Temperature 98.2. In fact, the patient has been afebrile over the last 24 hours. Oxygen saturation 92% on nasal cannula at this time. GENERAL: Ms. Sequeira still appears ill, however, she does look better than she did yesterday. NEUROLOGIC: Alert and oriented. LUNGS: Lung sounds are still coarse, but the wheezing is less pronounced than yesterday. CARDIOVASCULAR: Regular rate and rhythm. Normal S1, S2. ABDOMEN: Soft, obese. Positive bowel sounds. No tenderness to palpation. EXTREMITIES: Lower extremities with no edema . Peripheral pulses are 2+. Capillary refill less than 2 seconds. LABORATORY: White count 15.6, hemoglobin 11.8, hematocrit 34.8, platelet count 224. Sodium 137, potassium 3.0, chloride 96, CO2 27, BUN 23, creatinine 0.58, glucose 292, calcium 9.5, magnesium 1.9. RADIOLOGY: Chest x-ray reviewed actually looks better than the one yesterday. There is better aeration with decreased density in the right upper lobe infiltrate. Overall, it appears she has better aeration. ASSESSMENT: 1. Acute hypoxemia with respiratory failure, improving. 2. Multifocal pneumonia with influenza type A. 3. Sepsis secondary to multifocal pneumonia with current negative blood cultures. Sputum is still pending. 4. Diabetes mellitus, type 2, with uncontrolled glucoses currently. 5. Hypertension, controlled. 6. Hypokalemia. PLAN: 1. Her oxygenation is improving. We have been able to wean down the oxygen a little bit, so we will continue to do this as tolerated. 2. Continue the Tamiflu for a total of 5 days. I did escalate her antibiotics yesterday and I am not really sure if that is the reason her pneumonia is better or if she is just more mobile and able to clear her lungs a little bit better, but we will obviously continue the current antibiotics. 3. Her glucoses are pretty uncontrolled. She has been in the high 200s consistently, however, due to steroids and I will further reduce them today. Given her high glucoses, I am going to give one dose of long-acting insulin with Levemir 15 units. Continue her sliding scale as well. We will reassess this tomorrow. Her hemoglobin A1c was only 6.5, so I do not think she is going to need insulin to go home on, but she is not even on p.o. medications. This will need to be addressed with her primary care provider as soon as they can followup with her and keep close tabs on her medical management. 4. Hypokalemia will be addressed with another bag of IV fluids as well as p.o. supplementation at this time. 5. I will recheck her labs and chest x-ray tomorrow morning as well. #[id number] [facility]
[2017-07-24] MEDS: IV SET AND CAP CHANGE INJ INJ SCH (18:24)
[2017-07-24] MEDS: hydroCHLOROthiazide 25 MG TAB PO SCH (20:44)
[2017-07-24] MEDS: ENOXAPARIN SODIUM 40 MG/0.4 ML SYG SUBCU SCH (20:44)
[2017-07-24] MEDS: LISINOPRIL 10 MG TAB PO SCH (20:44)
[2017-07-24] MEDS: SIMVASTATIN 10 MG TAB PO SCH (20:44)
[2017-07-25] MEDS: KCL 20 MEQ/NS 1,000 ML IVS PRN ×2 (01:21→16:33)
[2017-07-25] MEDS: PANTOPRAZOLE SODIUM TAB 40 MG PO SCH (06:14)
[2017-07-25] MEDS: methylPREDNISolone SODIUM SUC 40 MG/ML VIAL IV SCH ×2 (06:14→18:29)
--- NOTE | 2017-07-25 07:45 | RAD ---
Study: Single Frontal View of the Chest. Indication:pneumonia Comparison: July 24. Impression: Mild cardiomegaly. Slight progressed bibasilar opacities with tiny pleural effusions. Continued follow-up recommended. No pneumothorax. Electronically signed by: Hesham Templeton MD 07/25/2017 7:44 AM [facility]
[2017-07-25] MEDS: POTASSIUM CHLORIDE 20 MEQ TAB PO SCH (07:59)
[2017-07-25] MEDS: INSULIN LISPRO 100 UNITS/ML PEN SUBCU SCH ×7 (07:59→21:02)
[2017-07-25] MEDS: IPRATROPIUM/ALBUTEROL 3 ML VIAL NEB SCH ×4 (08:23→21:30)
[2017-07-25] MEDS: OSELTAMIVIR 75 MG CAP PO SCH ×2 (10:03→21:03)
[2017-07-25] MEDS: guaiFENesin ER TAB 600 MG TAB PO SCH ×2 (10:03→21:03)
[2017-07-25] MEDS: SODIUM CHLORIDE 0.9% (FLUSH) 10 ML SYG IV SCH ×2 (10:03→21:03)
[2017-07-25] MEDS: amLODIPine BESYLATE 5 MG TAB PO SCH (10:03)
[2017-07-25] MEDS ORDERED: SODIUM CHL 0.9% 50ML MIN-BAG+ 50 ML IVPB ONE ×2 (12:12→19:38)
[2017-07-25] MEDS ORDERED: CEFEPIME 2 GM VIAL IVPB ONE ×2 (12:12→19:39)
[2017-07-25] MEDS ORDERED: levoFLOXacin 500MG IV 100 ML IVPB ONE (12:12)
[2017-07-25] MEDS: INSULIN DETEMIR 100 UNITS/ML PEN SUBCU SCH (12:16)
[2017-07-25] MEDS: CEFEPIME 2 GM in SODIUM CHL 0.9% 50ML MIN-BAG+ 50 ML IVPB SCH ×2 (12:16→22:40)
[2017-07-25] MEDS: levoFLOXacin 500MG IV 500 MG in PREMIX BAG 1 BAG IVPB SCH (13:22)
--- NOTE | 2017-07-25 15:26 | PN ---
DATE: 07/25/17 SUPERVISING PHYSICIAN: Maximilian Vernon M.D. SUBJECTIVE: Ms. Sequeira subjectively feels quite a bit better today. She is up walking around the room more. Her shortness of breath has improved but she is still coughing quite a bit. Anytime she takes a deep breath she coughs pretty significantly. OBJECTIVE: Blood pressure 142/79, heart rate 85, respiratory rate 20, temperature 97.7, oxygen saturation 98%. GENERAL: Ms. Sequeira is a 56 year-old female still ill in appearance but improved from yesterday. NEUROLOGIC: The patient is alert and oriented. LUNGS: With coarse sounds, wheezing is barely audible at this time. CARDIOVASCULAR: Regular rate and rhythm. Normal S1 and S2. ABDOMEN: Soft, obese. positive bowel sounds. No tenderness to palpation. EXTREMITIES: Lower extremities have no significant edema. Peripheral pulses are 2+. Capillary refill is less than 2 seconds. RADIOLOGY: No significant change from yesterday as far as the x-ray is concerned. LABORATORY: White blood cell count has gone up to 16.9, hemoglobin 12.5, hematocrit 37.1, neutrophils are 86.1, platelet count 258. Sodium 138, potassium 3.5, chloride 96, BUN 21, creatinine 0.57, glucose 243, calcium 9.5. ASSESSMENT: 1. Acute hypoxemic respiratory failure continues to improve. 2. Multifocal pneumonia with Influenza type A, clinically improving and radiographically improving as well. 3. Sepsis secondary to #2. 4. Diabetes mellitus type 2 with improving glucoses. 5. Hypertension. 6. Hypokalemia. PLAN: 1. The patient's hypoxia is continuing to improve. We are continuing to wean down the oxygen and will do so step-oneill. 2. Tamiflu should be actually ending today. Will continue current antibiotics for now. I still feel like her leukocytosis is due to the steroids. I have reduced the steroids but could be a lagging effect. Her cultures are still negative. 3. Glucoses were pretty uncontrolled yesterday so I started her on long- acting insulin. They seem to be a little bit better today. I am going to increase that long-acting insulin to 20 units of Levemir daily and see how she does. I am not going to adjust her steroids today. She is pretty much on a low dose anyway at 20 mg twice a day of Solu-Medrol. 4. Hypokalemia, stable. I will probably give her another dose of potassium. 5. I will recheck her labs and x-ray tomorrow as well. #[id number] [facility]
[2017-07-25] MEDS: SIMVASTATIN 10 MG TAB PO SCH (21:03)
[2017-07-25] MEDS: ENOXAPARIN SODIUM 40 MG/0.4 ML SYG SUBCU SCH (21:03)
[2017-07-25] MEDS: LISINOPRIL 10 MG TAB PO SCH (21:03)
[2017-07-25] MEDS: hydroCHLOROthiazide 25 MG TAB PO SCH (21:03)
[2017-07-26] MEDS: PANTOPRAZOLE SODIUM TAB 40 MG PO SCH (06:15)
[2017-07-26] MEDS: KCL 20 MEQ/NS 1,000 ML IVS PRN ×2 (06:15→20:54)
[2017-07-26] MEDS: methylPREDNISolone SODIUM SUC 40 MG/ML VIAL IV SCH ×2 (06:15→18:35)
[2017-07-26] MEDS: IPRATROPIUM/ALBUTEROL 3 ML VIAL NEB SCH ×4 (07:09→19:55)
[2017-07-26] MEDS: INSULIN LISPRO 100 UNITS/ML PEN SUBCU SCH ×7 (07:42→21:37)
[2017-07-26] MEDS: POTASSIUM CHLORIDE 20 MEQ TAB PO SCH (07:43)
[2017-07-26] MEDS: INSULIN DETEMIR 100 UNITS/ML PEN SUBCU SCH (08:56)
[2017-07-26] MEDS: OSELTAMIVIR 75 MG CAP PO SCH (08:58)
[2017-07-26] MEDS: guaiFENesin ER TAB 600 MG TAB PO SCH ×2 (08:59→20:54)
[2017-07-26] MEDS: amLODIPine BESYLATE 5 MG TAB PO SCH (08:59)
[2017-07-26] MEDS: SODIUM CHLORIDE 0.9% (FLUSH) 10 ML SYG IV SCH ×2 (09:00→20:56)
[2017-07-26] MEDS ORDERED: CEFEPIME 2 GM VIAL IVPB ONE ×2 (10:50→22:47)
[2017-07-26] MEDS ORDERED: SODIUM CHL 0.9% 50ML MIN-BAG+ 50 ML IVPB ONE ×2 (10:50→22:47)
[2017-07-26] MEDS: CEFEPIME 2 GM in SODIUM CHL 0.9% 50ML MIN-BAG+ 50 ML IVPB SCH ×2 (10:56→22:54)
[2017-07-26] MEDS: BIFIDOBACTERIUM INFANTIS 4 MG CAP PO SCH (10:56)
[2017-07-26] MEDS: levoFLOXacin 500 MG TAB PO SCH (11:50)
[2017-07-26] MEDS ORDERED: predniSONE 20 MG TAB PO ONE (15:26)
[2017-07-26] MEDS ORDERED: POTASSIUM CHLORIDE 20 MEQ TAB PO ONE (15:28)
--- NOTE | 2017-07-26 19:30 | PN ---
DATE: 07/26/17 SUPERVISING PHYSICIAN: Maximilian Vernon M.D. SUBJECTIVE: The patient is sitting on the side of the bed. She feels much better but continues to have cough with deep breathing. She also gets short of breath with exertion at times with deep breathing. Otherwise she is feeling better. OBJECTIVE: VITAL SIGNS: She is afebrile, heart rate 93, blood pressure 128/72. Respiratory rate has been as high as 24, it is now 18. O2 sats are 94% on 4 liters nasal cannula. RESPIRATORY: Diminished at the bases bilaterally. There is no wheezing noted. CARDIAC: Regular rate and rhythm. GASTROINTESTINAL: Abdomen is soft, nondistended, non-tender. Bowel sounds are positive. EXTREMITIES: No cyanosis, clubbing or edema. NEUROLOGIC: She is awake, alert and oriented times three. LABORATORY: WBCs are 16.9, hemoglobin 12.5, hematocrit 37.1. Sodium 138, potassium 3.5, chloride 96, carbon dioxide 28, BUN 21, creatinine 0.57. Glucose has been running between 148 and 300. Urine culture shows not growth after 48 hours. Final blood cultures show no growth after 5 days. All other labs and films have been reviewed via the EMR. ASSESSMENT: 1. Acute hypoxemic respiratory failure continues to improve. 2. Multifocal pneumonia with Influenza type A, clinically improving and radiographically improving as well. 3. Sepsis secondary to #2. 4. Diabetes mellitus type 2 with improving glucoses presently on long-acting nightly insulin. 5. Hypertension. 6. Hypokalemia. PLAN: We will continue present supportive care. Her hypoxia is improving and we have weaned down her oxygen as well as her steroids. I have taken her off of isolation and I have encouraged her to walk in the hallways as much as possible. Her glucoses are still high but better than previously and will continue to monitor that. She may need to go home on some Levemir. I will do lab and x-ray in the morning and hopefully she can be discharged tomorrow or the next day. We will continue to monitor closely and follow as needed. Dr. Vernon is the collaborating physician available for consultation. #[id number] [facility]
[2017-07-26] MEDS: hydroCHLOROthiazide 25 MG TAB PO SCH (20:54)
[2017-07-26] MEDS: ENOXAPARIN SODIUM 40 MG/0.4 ML SYG SUBCU SCH (20:55)
[2017-07-26] MEDS: LISINOPRIL 10 MG TAB PO SCH (20:55)
[2017-07-26] MEDS: SIMVASTATIN 10 MG TAB PO SCH (20:55)
[2017-07-27] MEDS: methylPREDNISolone SODIUM SUC 40 MG/ML VIAL IV SCH (06:11)
[2017-07-27] MEDS: PANTOPRAZOLE SODIUM TAB 40 MG PO SCH (06:11)
--- NOTE | 2017-07-27 06:44 | RAD ---
EXAM DESCRIPTION: Chest,2 Views CLINICAL HISTORY: pna COMPARISON: 07/25/2017 FINDINGS: Frontal and lateral views of the chest. The cardiomediastinal silhouette has normal size and contour. Persistent bibasilar opacities and possible small bilateral pleural effusions. No pneumothorax. No acute osseous abnormalities identified. Leads overlie the chest. Upper abdominal soft tissues are unremarkable. IMPRESSION: 1. Stable appearance of the chest with persistent bibasilar opacities. Electronically signed by: Angel Ureña 07/27/2017 6:43 AM [facility]
[2017-07-27] MEDS ORDERED: SODIUM CHL 0.9% 50ML MIN-BAG+ 50 ML IVPB ONE (07:18)
[2017-07-27] MEDS ORDERED: CEFEPIME 2 GM VIAL IVPB ONE (07:19)
[2017-07-27] MEDS: INSULIN LISPRO 100 UNITS/ML PEN SUBCU SCH ×4 (07:21→12:13)
[2017-07-27] MEDS: POTASSIUM CHLORIDE 20 MEQ TAB PO SCH (07:24)
[2017-07-27] MEDS: IPRATROPIUM/ALBUTEROL 3 ML VIAL NEB SCH ×2 (08:41→13:15)
[2017-07-27] MEDS: BIFIDOBACTERIUM INFANTIS 4 MG CAP PO SCH (09:04)
[2017-07-27] MEDS: guaiFENesin ER TAB 600 MG TAB PO SCH (09:04)
[2017-07-27] MEDS: levoFLOXacin 500 MG TAB PO SCH (09:04)
[2017-07-27] MEDS: INSULIN DETEMIR 100 UNITS/ML PEN SUBCU SCH (09:05)
[2017-07-27] MEDS: amLODIPine BESYLATE 5 MG TAB PO SCH (09:05)
[2017-07-27] MEDS: SODIUM CHLORIDE 0.9% (FLUSH) 10 ML SYG IV SCH (09:11)
[2017-07-27] MEDS: CEFEPIME 2 GM in SODIUM CHL 0.9% 50ML MIN-BAG+ 50 ML IVPB SCH (10:37)
[2017-07-27] MEDS ORDERED: DOXYCYCLINE HYCLATE CAP 100 MG CAP PO SCH (13:00)
[2017-07-27] MEDS: KCL 20 MEQ/NS 1,000 ML IVS PRN (13:13)
[2017-07-27] MEDS ORDERED: HYDROcodone 5MG/APAP 325MG 1 EA TAB ONE (14:05)
[2017-07-27] MEDS ORDERED: ENOXAPARIN SODIUM 60 MG/0.6 ML SYG SUBCU ONE (14:13)
[2017-07-27 15:55] VITALS: BP 140/70; TEMP 98.4; O2SAT 95
--- NOTE | 2017-07-28 20:42 | DS ---
SUPERVISING PHYSICIAN: Maximilian Vernon M.D. DISCHARGE DIAGNOSIS: 1. Acute hypoxemic respiratory failure that has improved. 2. Multifocal pneumonia with Influenza type A clinically improving and radiographically improved as well. 3. Sepsis secondary to number 2. 4. Diabetes mellitus type 2 with improving glucoses. She was on long-acting insulin in the hospital. Will be discharged on Metformin as her hemoglobin A1c is 6.5. 5. Hypertension. 6. Hypokalemia that has resolved. HISTORY OF PRESENT ILLNESS: This is a 66 year-old female patient who presented to the Emergency Room due to worsening cough and shortness of breath. She has had the cough well over a week before she was seen in [facility]. She was given a prescription at that time but was unable to get the medication filled, nor does she remember what the medication was. She has some chronic lung disease and uses nebulizer treatments. She had fever at home but denied any chest pains. She does have shortness of breath, fatigue and dyspnea with exertional effort. Flu swab was done several days previously that was negative, but on the date of admission her Influenza test was positive for flu A. She had significant leukocytosis of 14,500 with a left shift. Blood gas analysis showed significant hypoxemia with a pH of 7.47 PCO2 of 41, PO2 of 52, bicarb 29 with saturations on 2 liters nasal cannula at 92% with a base excess of 6. Chemistries were significant for hyponatremia with sodium 132 and hypokalemia 2.9. BUN and creatinine were within normal limits. Her initial lactic acid was elevated at 2.5. Liver functions were within normal limits. Urinalysis showed a trace of leukocyte esterase and pyuria with WBCs of 10 to 20 with bacteria of 1+. Blood cultures were completed. She was started on Tamiflu and given antibiotic therapy of Rocephin and azithromycin, given fluids. Her x-ray showed she had a multifocal pneumonia involving the right upper and lower lobes with some infiltrates noted in the left lung base. She did have an elevated D-dimer. CT of the chest showed no evidence of a pulmonary embolus. CT of the chest had mention of confluent right lower lobe consolidation with patchy areas of consolidation throughout the lungs bilaterally likely representing multifocal infectious process. She was admitted to the hospital for Influenza A, multifocal pneumonia, leukocytosis and elevated lactic acid, all concerning for community-acquired pneumonia and developing sepsis. Her sputum culture showed Staphylococcus aureus and she was started on doxycycline which her TRAFFIC TECHNICIAN report showed a sensitivity to. She will continue on her Levaquin. Sepsis protocol was initiated and she was admitted in stable condition. HOSPITAL COURSE: Her blood cultures showed no growth after 5 days. She continued on her present antibiotic therapy and was in flu isolation precautions. She improved very slowly and her chest x-ray today showed a stable appearance of the chest with persistent bibasilar opacities. Her white count has dropped to 14,700. Her vital signs have stabilized. She has been afebrile. She has tolerated ambulating without oxygen and her oxygen saturations have stayed above 90%. She will be discharged home in stable condition. DISCHARGE PLAN: The patient will be discharged home in stable condition. She is to start a diabetic diet, to increase activity as tolerated. She is to see Latonia Zamora at [facility] on 08/02/17 at 2:40. She was given a glucometer and instructed to do her fasting blood sugars each morning and record them. She was on Levemir here in the hospital due to her steroids, but she will be sent home on 500 mg of Glucophage b.i.d. She was told that her sugars would be elevated over the next few days as she tapers down her steroids , but that they should improve and she is to take her blood sugar records in with her when she sees Latonia Zamora. She is to return to the hospital for any further problems or complications. DISCHARGE MEDICATIONS: 1. Lisinopril/Hydrochlorothiazide. 2. Amlodipine. 3. Lovastatin. 4. Acetaminophen arthritis. 5. Align. 6. Doxycycline. 7. Guaifenesin. 8. Levaquin. 9. Metformin. 10. Albuterol inhaler. #[id number] [facility]
== END 2017-07-27 15:58 | disposition home or self-care (01) | DRG 871 ==
LOC: ER 12:14 → MS 18:00
PROVIDERS: ADMIT Family Medicine; ATTEND Nurse Practitioner Acute Care
PROC: BW24YZZ Computerized Tomography (CT Scan) of Chest and Abdomen using Other Contrast (ICD-10-PCS; principal; 2017-07-21)
DX: A41.89 Other specified sepsis (principal); J10.00 Influenza due to other identified influenza virus with unspecified type of pneumonia; J96.01 Acute respiratory failure with hypoxia; E87.1 Hypo-osmolality and hyponatremia; N39.0 Urinary tract infection, site not specified; E87.6 Hypokalemia; I10 Essential (primary) hypertension; E78.00 Pure hypercholesterolemia, unspecified; E86.0 Dehydration; E11.65 Type 2 diabetes mellitus with hyperglycemia

== ENCOUNTER → 2018-04-23 | Outpatient (CLI) | payer OTHER ==
--- NOTE | 2018-04-23 11:08 | RAD ---
EXAM DESCRIPTION: Left hip, 2 views CLINICAL HISTORY: Osteoarthritis. 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
== END ==
LOC: RAD 10:07
PROVIDERS: ATTEND Nurse Practitioner Family
DX: M16.12 Unilateral primary osteoarthritis, left hip (principal)

== ENCOUNTER → 2019-10-07 | Outpatient (CLI) | payer OTHER | LOC: YCFC.O 12:03 | PROVIDERS: ATTEND Nurse Practitioner | DX: E78.5 Hyperlipidemia, unspecified (principal); I10 Essential (primary) hypertension ==

== ENCOUNTER → 2019-11-17 | Outpatient (CLI) | payer MEDICARE, OTHER | LOC: LAB.O 12:19 | PROVIDERS: ATTEND Nurse Practitioner | DX: R80.9 Proteinuria, unspecified (principal) ==

== ENCOUNTER 2020-08-09 16:39 | Emergency (ER) | payer MEDICARE, OTHER ==
--- NOTE | 2020-08-09 17:37 | RAD ---
EXAM: Shoulder,Right 2 or More Views CLINICAL INDICATION: 69-year-old female status post trauma. TECHNIQUE: Limited two views of the RIGHT shoulder were obtained in external rotation and transcapular projections. COMPARISON: None. FINDINGS: There is no fracture or dislocation. The joint spaces are preserved. No soft tissue abnormalities are seen. Degenerative change of the acromioclavicular and glenohumeral joint. IMPRESSION: No acute radiographic abnormality. Electronically signed by: Yadira Jones MD 08/09/2020 5:36 PM [facility]
--- NOTE | 2020-08-09 18:01 | CT ---
EXAM DESCRIPTION: Lumbar Spine RadLex: CT LUMBAR SPINE WITHOUT IV CONTRAST CLINICAL HISTORY: 69 years Female; trauma; MAIN TECHNIQUE: Noncontrast lumbar spine CT with sagittal and coronal reconstructions. All CT scans at this facility use dose modulation, iterative reconstruction, and/or weight based dosing when appropriate to reduce radiation dose to as low as reasonably achievable. COMPARISON: None. FINDINGS: There is subluxation of vertebrae L5 on L4 for by approximately 7.2 mm. There is severe disc space narrowing seen at L2-3 with a posterior disc osteophyte complex causing bilateral neural foraminal narrowing more prevalent on the right than on the left. At L3-4 there is a broad-based disc bulge which is more prevalent on the right than on the left causing bilateral neural foraminal narrowing. At L4-5 the combination of subluxation posterior disc bulge and posterior osteophyte formation as well as a degenerative facet arthropathy is narrowing the central canal to approximately 7.6 mm and causing severe bilateral neural foraminal narrowing. L5-S1 there is a posterior broad-based disc bulge this in combination with bilateral degenerative facet arthropathy is causing bilateral neural foraminal narrowing. There are fractures of the right transverse process of vertebrae L1, L2 and L3. IMPRESSION: 1. Fractures of the right transverse process of vertebrae L1, L2 and L3. 2. Degenerative changes as described above. Electronically signed by: Donald Campos MD 08/09/2020 5:59 PM [facility]
--- NOTE | 2020-08-09 18:13 | ED.PDOC ---
History of Present Illness - General Chief Complaint: Trauma Stated Complaint: fall Time Seen by Provider: 08/09/20 16:56 - History of Present Illness Initial Comments: FELL AND HIT RIGHT LOWER BACK 2-3 DAYS AGO. C/O PAIN NOT IMPROVING. Severity: severe Pain Location: back Method of Injury: fall Improving Factors: immobilization Worsening Factors: movement Loss of Consciousness: no loss of consciousness Associated Symptoms (Fall): denies symptoms Allergies/Adverse Reactions: Allergies NO KNOWN ALLERGY Allergy (Verified 07/21/17 12:21) Home Medications: Ambulatory Orders Acetaminophen Arthritis [Tylenol Arthritis Pain] 650 mg PO TID PRN 07/21/17 Lisinopril & Hydrochlorothiazi [Lisinopril/Hctz 20-25 mg] 1 tab PO BEDTIME 07/21/17 Lovastatin 20 mg PO DAILY 07/21/17 amLODIPine BESYLATE [Norvasc] 10 mg PO DAILY 07/21/17 Albuterol Inhaler [Ventolin Hfa Inhaler] 1 - 2 puff INH Q4H PRN #1 inh 07/27/17 Bifidobacterium Infantis [Align] 4 mg PO DAILY #30 cap 07/27/17 Doxycycline Hyclate [Vibramycin] 100 mg PO BID #19 cap 07/27/17 guaiFENesin ER TAB [Mucinex Tab] 600 mg PO BID #100 tab 07/27/17 levoFLOXacin [Levaquin] 500 mg PO DAILY #7 tab 07/27/17 metFORMIN XR [Glucophage XR] 500 mg PO BID #60 tab.er.24 07/27/17 Tramadol HCl [Ultram] 50 mg PO Q4H PRN 14 Days #30 tab 08/09/20 Review of Systems - Review of Systems Constitutional: States: no symptoms reported EENTM: States: no symptoms reported Respiratory: States: no symptoms reported Cardiology: States: no symptoms reported Gastrointestinal/Abdominal: States: no symptoms reported Genitourinary: States: no symptoms reported Musculoskeletal: States: no symptoms reported Skin: States: no symptoms reported Neurological: States: no symptoms reported. Denies: numbness, paresthesia, tingling, weakness Endocrine: States: no symptoms reported, excessive sweating Hematologic/Lymphatic: States: no symptoms reported Past Medical History (General) - Patient Medical History Hx Seizures: No Hx Stroke: No Hx Dementia: No Hx Asthma: No Hx of COPD: No Hx Cardiac Disorders: Yes - high cholesterol Hx Congestive Heart Failure: No Hx Pacemaker: No Hx Hypertension: Yes Hx Thyroid Disease: No Hx Diabetes: No Hx Gastroesophageal Reflux: No Hx Renal Disease: No Hx Cancer: No Hx of HIV: No Hx Hepatitis C: No Hx MRSA: No Surgical History: Hysterectomy, other - Vaccination History Hx Tetanus, Diphtheria Vaccination: No - unsure when Hx Influenza Vaccination: No Hx Pneumococcal Vaccination: No - Social History Hx Tobacco Use: No Hx Alcohol Use: No Hx Substance Use: No Hx Substance Use Treatment: No Hx Depression: No Hx Physical Abuse: No Hx Emotional Abuse: No Family Medical History - Family History Father Living Status: Hx Cardiac Disease: Yes Mother Family History: Unknown Living Status: Hx Family Diabetes: Yes Physical Exam - Physical Exam General Appearance: Alert, Anxious, Comfortable Head Injury: no evidence of injury Neck Exam: non-tender, full range of motion, normal alignment, normal inspection Cardiovascular/Respiratory: regular rate, rhythm, no M/R/G, normal peripheral pulses, no JVD, normal breath sounds, no respiratory distress Gastrointestinal/Abdominal: normal bowel sounds, non tender, soft, no organomegaly, no pulsatile mass Back Exam: normal inspection, muscle spasm - RIGHT LUMBAR PARAVERTEBRAL Extremity Exam: no evidence of injury, normal range of motion, non-tender, no pedal edema 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 Copy, Patient Portal Self Enrollment Instructions: DI for Trauma, Low Back Pain ED, Vertebral Compression Fracture Referrals: Lili Jones FNP [Primary Care Provider] - 1-2 Weeks Prescriptions: Tramadol HCl [Ultram] 50 mg PO Q4H PRN 14 Days #30 tab PRN Reason: Pain Home Medications: Ambulatory Orders Acetaminophen Arthritis [Tylenol Arthritis Pain] 650 mg PO TID PRN 07/21/17 Lisinopril & Hydrochlorothiazi [Lisinopril/Hctz 20-25 mg] 1 tab PO BEDTIME 07/21/17 Lovastatin 20 mg PO DAILY 07/21/17 amLODIPine BESYLATE [Norvasc] 10 mg PO DAILY 07/21/17 Albuterol Inhaler [Ventolin Hfa Inhaler] 1 - 2 puff INH Q4H PRN #1 inh 07/27/17 Bifidobacterium Infantis [Align] 4 mg PO DAILY #30 cap 07/27/17 Doxycycline Hyclate [Vibramycin] 100 mg PO BID #19 cap 07/27/17 guaiFENesin ER TAB [Mucinex Tab] 600 mg PO BID #100 tab 07/27/17 levoFLOXacin [Levaquin] 500 mg PO DAILY #7 tab 07/27/17 metFORMIN XR [Glucophage XR] 500 mg PO BID #60 tab.er.24 07/27/17 Tramadol HCl [Ultram] 50 mg PO Q4H PRN 14 Days #30 tab 08/09/20
[2020-08-09 18:47] VITALS: BP 179/87; TEMP 97.8; O2SAT 94
== END 2020-08-09 18:30 | disposition home or self-care (01) ==
LOC: ER 16:39
DX: S32.019A Unspecified fracture of first lumbar vertebra, initial encounter for closed fracture (principal); S32.029A Unspecified fracture of second lumbar vertebra, initial encounter for closed fracture; S32.039A Unspecified fracture of third lumbar vertebra, initial encounter for closed fracture; I10 Essential (primary) hypertension; E78.00 Pure hypercholesterolemia, unspecified; Z79.84 Long term (current) use of oral hypoglycemic drugs; Z79.899 Other long term (current) drug therapy; W00.0XXA Fall on same level due to ice and snow, initial encounter; Y92.008 Other place in unspecified non-institutional (private) residence as the place of occurrence of the external cause